=== PATIENT | female | born 1940 | race Two or more races ===

== ENCOUNTER 2022-03-14 09:57 | Outpatient (CLI) | payer OTHER | END 2022-03-14 10:00 | disposition home or self-care (01) | LOC: NUCLEAR 09:57 | PROVIDERS: ATTEND Internal Medicine | DX: I82.403 Acute embolism and thrombosis of unspecified deep veins of lower extremity, bilateral (principal) ==

== ENCOUNTER 2025-01-11 10:11 | Outpatient (CLI) | payer OTHER | END 2025-01-11 14:50 | disposition home or self-care (01) | LOC: LAB 10:11 | DX: H25.13 Age-related nuclear cataract, bilateral (principal); Z01.810 Encounter for preprocedural cardiovascular examination; H53.9 Unspecified visual disturbance ==